=== PATIENT | female | born 1985 | race Caucasian/White ===

== ENCOUNTER 2023-11-07 21:23 | Emergency (ER) | payer OTHER, SELFPAY ==
--- NOTE | ~2023-11-07 | XR_ITS ---
XR finger 3rd LT min 2V DATE: 11/07/2023 22:43 INDICATION: Bruising at base of third digit. No injury. TECHNIQUE: AP and lateral views of the left third digit COMPARISON: None FINDINGS: No fracture or dislocation, periosteal reaction or bone destruction, radiopaque soft tissue foreign body or subcutaneous emphysema. IMPRESSION: Negative Reviewed, dictated and finalized at location A. IMPRESSION: Negative
[2023-11-07 21:36] VITALS: BP 121/68; PULSE 70; RESP 16; TEMP 36.7; O2SAT 99
--- NOTE | 2023-11-07 22:30 | ED.EXTPRO ---
HPI - Extremity Problem General Chief complaint: Extremity Problem,Nontraumatic Stated complaint: left hand swelling/bruising Time Seen by Provider: 11/07/23 22:26 History of Present Illness HPI Narrative: 38-year-old female presents to emergency department for left 3rd finger swelling and bruising she noticed today. Patient states she is cleaning her basement when she looked down and noticed swelling and bruising to the palmar aspect of her left 3rd finger. She does not recall injuring her finger. She is concerned she got bit by a brown recluse because there are known brown recluse in her basement. States she did not see the spider bite her. Tdap is up-to-date. She really states the area is somewhat tender but not significantly painful. She has full range of motion of the finger. No other injuries. Related Data Allergies Allergy/AdvReac Type Severity Reaction Status Date / Time No Known Allergies Allergy Verified 11/07/23 22:08 Review of Systems Review of Systems: CONSTITUTIONAL: Denies fever, chills, or sweats. EYES: Denies visual changes, redness, or discharge. ENT: Denies rhinorrhea, congestion, sore throat, or otalgia. CARDIOVASCULAR: Denies chest pain, palpitations, or edema. RESPIRATORY: Denies cough or dyspnea. GASTROINTESTINAL: Denies abdominal pain, nausea, vomiting, or diarrhea. GENITOURINARY: Denies dysuria or hematuria. SKIN: Denies rash or itching. MUSCULOSKELETAL: See HPI NEUROLOGIC: Denies headache, numbness, or weakness. PSYCHIATRIC: Denies anxiety or depression. Exam Narrative: GENERAL: Well-appearing, well-nourished, and in no acute distress. HEAD: Normocephalic, atraumatic. NECK: Supple. CHEST: Clear to auscultation. No respiratory distress. HEART: Regular rate and rhythm. No murmur heard. Normal peripheral pulses. EXTREMITIES: LUE: 3rd finger with focal area of ecchymosis over the D IP and middle phalanx on the palmar aspect of the finger with mild amount of edema. No areas of fluctuance or induration, no erythema or warmth. Patient has full active and passive range of motion of finger. No tenderness along the flexor tendon. Cap refill less than 2. Sensation intact. SKIN: Warm, dry, no rash. NEURO: No focal deficits. Alert and oriented x3 Course Vital Signs Vital signs: Vital Signs Temperature 98.1 F 11/07/23 21:36 Pulse Rate 70 11/07/23 21:36 Respiratory Rate 16 11/07/23 21:36 Blood Pressure 121/68 11/07/23 21:36 Pulse Oximetry 99 11/07/23 21:36 Oxygen Delivery Room Air 11/07/23 21:36 Temperature 98.1 F 11/07/23 21:36 Pulse Rate 70 11/07/23 21:36 Respiratory Rate 16 11/07/23 21:36 Blood Pressure 121/68 11/07/23 21:36 Pulse Oximetry 99 11/07/23 21:36 Oxygen Delivery Room Air 11/07/23 21:36 MDM - Extremity (Nontraumatic) MDM Narrative Medical decision making narrative: 38-year-old female presents emergency department for bruising and swelling to the palmar aspect of her left 3rd finger. She is concerned for a brown recluse bite. See HPI for further history. Triage vitals stable. Exam is significant for the above. No symptoms of flexor tenosynovitis. X-ray the finger is negative. The area does not look infected, I do not feel antibiotics are needed at this time. Encouraged Tylenol and ibuprofen and follow up with her PCP. Strict ED return precautions discussed. She is agreeable to plan verbalized understanding. Discharged stable condition brain Discharge Plan Discharge Clinical Impression: Finger pain Qualifiers: Laterality: left Qualified Code(s): M79.645 - Pain in left finger(s) Patient Disposition: Home, Self-Care Condition: Stable Instructions: Antibiotic Form Additional Instructions: You were evaluated in the emergency department for pain to her finger. Her x-rays were negative. He may have bumped or jammed her finger and not have known it, or you you may have been bitten by a spider. Please take Tyle
== END 2023-11-07 23:29 | disposition home or self-care (01) ==
PROVIDERS: Emergency Provider Physician Assistant; PCP Internal Medicine
DX: M79.645 Pain in left finger(s) (principal)
CPT/HCPCS: 73140; 99283

== ENCOUNTER 2024-11-29 05:15 | Emergency (ER) | payer BC, MEDICAID, SELFPAY ==
--- NOTE | ~2024-11-29 | XR_ITS ---
EXAMINATION: XR chest 2V DATE: 11/29/2024 06:14 INDICATION: Chest pain TECHNIQUE: PA and lateral views of the chest were obtained. COMPARISON: None FINDINGS: The lungs are clear with no focal airspace opacities, pulmonary edema, pleural effusion or pneumothor ax. The cardiomediastinal silhouette is normal. Slight thoracic dextrocurvature with mild spondylosis . Devices with appearance suggesting a port reservoir projects over the soft tissues of the anterior left upper quadrant. IMPRESSION: 1. No acute cardiopulmonary disease. Reviewed, dictated and finalized at location A.
--- NOTE | 2024-11-29 05:16 | ECG_ITS ---
Test Date: 2024-11-29 05:21:37 Measurements Intervals [place] Rate: 70 P: 7 ME: 122 QRS: 49 QRSD: 101 T: 19 QT: 386 QTc: 416 Interpretive Statements SINUS RHYTHM No previous ECG available for comparison Electronically Signed On 11-29-2024 17:13:03 CDT by Castro Chavez M.D.
[2024-11-29 05:18] VITALS: BP 124/79; PULSE 71; PULSE 82; RESP 12; TEMP 36.9; O2SAT 100
[2024-11-29 05:29] VITALS: BP 124/79; PULSE 76; RESP 12; O2SAT 99
[2024-11-29 05:30] LABS: Basophils Percent Auto 0.4 % (0.2-1.2); Eosinophils Absolute Auto 0.1 K/mm3 (0-0.3); Eosinophils Percent Auto 1.4 % (0-4.4); Hematocrit 43.9 % (37.0-47.0); Hemoglobin 14.2 g/dL (12.0-15.0); Immature Granulocyte Absolute 0.01 K/mm3 (0.00-0.031); Immature Granulocyte Percent A 0.2 % (0-0.5); Lymphocytes Absolute Auto 1.54 K/mm3 (0.9-3.2); Lymphocytes Percent Auto 31.5 % (18.3-44.2); Mean Corpuscular HGB Conc 32.3 g/dl (32-36); Mean Corpuscular Hemoglobin 29.3 pg (26-34); Mean Corpuscular Volume 90.7 fl (80-100); Mean Platelet Volume 9.4 fl (7.4-10.4); Monocytes Absolute Auto 0.5 K/mm3 (0.1-0.6); Monocytes Percent Auto 10.6 % (2.6-8.5); Neutrophils Absolute Auto 2.7 K/mm3 (1.3-6.7); Neutrophils Percent Auto 55.9 % (45.5-73.1); Platelet Count Result 232 k/mm3 (150-375); Red Blood Count 4.84 M/mm3 (4.2-5.4); Red Cell Distribution Width 13.2 % (11.5-14.5); White Blood Count 4.9 K/mm3 (4.5-10.0)
[2024-11-29 05:31] VITALS: BP 109/84; PULSE 77; RESP 11; O2SAT 98
[2024-11-29 05:41] LABS: Alanine Aminotransferase 19 U/L (6-35); Albumin Level 4.4 g/dL (3.5-5.1); Alkaline Phosphatase 57 U/L (38-126); Anion Gap 8 mmol/L (4-12); Aspartate Amino Transferase 27 U/L (14-36); Bilirubin,Total 0.6 mg/dL (0.2-1.3); Blood Urea Nitrogen 8 mg/dL (7-17); Calcium 8.9 mg/dL (8.4-10.2); Carbon Dioxide 29 mmol/L (22-30); Chloride 104 mmol/L (98-107); Estimated CRCL calculation 85 ml/min; Estimated Glomerular Filt Rate > 60; Glucose 94 mg/dL (65-110); Lipase 148 U/L (23-300); Potassium 3.6 mmol/L (3.4-5.0); Sodium 141 mmol/L (137-145)
[2024-11-29 05:43] LABS: Prothrombin Time 13.6 Seconds (11.1-14.7)
[2024-11-29 05:44] LABS: Partial Thromboplastin Time 32.4 Seconds (22.3-36.8)
[2024-11-29 05:46] VITALS: BP 109/70; PULSE 73; RESP 12; O2SAT 96
--- NOTE | 2024-11-29 05:50 | ED.CHESTPAIN ---
HPI - Chest Pain General Chief Complaint: Anxiety Stated Complaint: chest pain Time Seen by Provider: 11/29/24 05:21 Source: patient Mode of arrival: ambulatory Limitations: no limitations History of Present Illness HPI narrative: Patient presents with chest pain for approximately 30 hours. She has a history of anxiety and did try taking an old anxiolytic pill that her ObGyn Dr Mayer had once prescribed though she admits that it was more than 1 to 2 years old and might have been . Patient has had a lot of stressors recently. 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 She rule 1 of the sons about her grandfather using her ukulele and she tried to perform this some at an open [employer] earlier this evening as she is trying to perfect it so she can share with him because of his advanced age. She noticed that she got very shaky during it and had the increased chest pain afterwards. She also had a frustrating experience as although she felt like she did perform it perfectly she was offered $50 afterwards by bar waiter/waitress if she can curate 30 minutes of songs to play in the future. She was excited and carotid vessels offer but she states that her boyfriend seem to make derogatory comments that she was only offered this money because she has tits. He is a musician and she thought perhaps he was jealous. She also notes the stressors of having an ex- in her life and there being financial issues related to property they own together. She has a history of anxiety. Her chest pain is located below her left shoulder blade she notes that taking a deep breath worsens this pain. She describes the pain as a pressure but the with a piercing quality with breaths. This occurs intermittently. She denies any shortness of breath at rest. No nausea, vomiting, diaphoresis, fevers, or chills. She has not been coughing denies any hemoptysis. No edema. This has never happened before and she has never seen a geographic analyst or had a cardiac workup. She has a PCP. No underlying respiratory issues. Cardiac risk factors HTN:0 (in fact, history of low BP) HLD:0 DM:0 Obese: technically per measurements in EMR today Smoker: Yes - vapes nicotine/tobacco Personal history AZ/TIA/CVA: 0 Fam Hx AZ in first degree relative <65yo:0 (mother had cardiac surgery as a baby, suspect congenital issue) Related Data Allergies Allergy/AdvReac Type Severity Reaction Status Date / Time No Known Allergies Allergy Verified 11/29/24 05:15 [facility] Past Medical History Medical History (Updated 11/29/24 @ 17:50 by Minerva Ramirez MD) Anxiety Family History Family History Mother Congenital heart defect pediatric Status post cardiac surgery pediatric Social History Social History (Updated 11/29/24 @ 17:55 by Minerva Ramirez MD) Tobacco type: e-cigarettes/vaping Additional smoking assessment comments: tobacco/nicotine Substance use type: unknown Additional occupation/education comments: Quit finance job; multiple other pursuits (songwriting, writing books, developing judith) Exam Narrative: GENERAL: Well-appearing, well-nourished, and in no acute distress. HEAD: Normocephalic, atraumatic. EYES: Non injected, non icteric ENT: Nares clear, no rhinorrhea or epistaxis. Gross auditory acuity intact. NECK: Supple. No meningismus. CHEST: Speaking in full sentences. No respiratory distress. Lungs clear to auscultation bilaterally without appreciable wheezes or crackles or focal consolidation HEART: Regular rate and rhythm. . ABDOMEN: Soft, nondistended. No rigidity or guarding. Not peritoneal EXTREMITIES: Normal range of motion. No bilateral lower extremity edema. SKIN: Warm, dry, no rash. NEURO: No focal deficits. Alert and oriented. Answering questions. Following commands. Normal speech without aphasia or dysarthria. PSYCH: Appearance: Well kempt. Mood is (congruent with affect. Speech: Appropriate rate, quantity and volume. Patient frequently turning conversation to variety of life stressors when asked about cardiac /respiratory symptoms and obtaining PMH. Course Vital Signs Vital signs: Vital Signs Temperature 98.5 F 11/29/24 05:18 Pulse Rate 71 11/29/24 05:18 Respiratory Rate 12 11/29/24 05:18 Blood Pressure 124/79 11/29/24 05:18 Pulse Oximetry 100 11/29/24 05:18 Oxygen Delivery Room Air 11/29/24 05:18 Temperature 98.5 F 11/29/24 05:18 Pulse Rate 73 05/24/25 05:46 Respiratory Rate 12 11/29/24 05:46 Blood Pressure 109/70 11/29/24 05:46 Pulse Oximetry 96 11/29/24 05:46 Oxygen Delivery Room Air 11/29/24 05:18 MDM - Chest Pain MDM Narrative Medical decision making narrative: Patient presents with chest pain of more than 1 days' duration. History of anxiety and symptoms got worse after performing at an open [employer] where she debuted a song she wrote and performed on the [employer] about her grandpa . History of anxiety and tried taking an old anxiolytic drug she had been prescribed but she thinks it might have been . In the emergency department they are afebrile with vital signs within normal limits. HEART SCORE History 2 highly suspicious 1 moderately suspicious 0 slightly suspicious History score [address] depression/elevation not due to LBBB, LVH, or digoxin [address] depression but LBBB, LVH, nonspecific repolarization changes 0 normal ECG score 0 Age 2 >/= 65 1 45-64 0 <45 Age score 0 Risk factors (HTN, hypercholesterolemia, DM, obesity with BMI >30, current smoker or cessation </=3mo), positive fam hx with parent or sibling with CVD before age 65, atherosclerotic disease (prior AZ, PCI/CABG, CVA/TIA, or peripheral arterial disease) 2 >/= 3 risk factors or history of atherosclerotic dz 1 - 1-2 risk factors 0 no known risk factors Risk factor score : 1 (obese, smoker) Initial Troponin 2 >3 times normal limit 1 1-3 times normal limit 0 less than or equal to normal limit Troponin score 0 Total HEART Score 1. PERC Rule Age greater than or equal to 50: 0 HR greater than or equal to 100:0 O2 sat room air <95%:0 Unilateral leg swellin Hemoptysis:0 Recent surgery or trauma less than 4 wks ago requiring tx with general anesthesia:0 Prior PE or DVT:0 Hormone use (OCP, HRT or estrogenic hormone use in M/F patients): 0 Will defer further PE work up. Repeat troponin also deferred given patient's symptoms have been going on for >24 hours. Her symptoms sound very much related to anxiety and life stressors, as she herself endorses. Patient given a dose of an anxiolytic. Advised follow-up with PCP but also given referral contact information for geographic analyst given her low but not negligible risk. Stable for discharge. Differential Diagnosis Differential diagnosis: Likely pneumothorax, stable angina, unstable angina pectoris, atypical chest pain, st elevation myocardial infarction, costochondritis, chest pain, biliary colic and other (anxiety/panic attack) Lab Data Attestation: I reviewed the patient's lab results. 11/29/24 05:23 11/29/24 05:23 Labs: Lab Results 11/29/24 Range/Units 05:23 WBC 4.9 (4.5-10.0) K/mm3 RBC 4.84 (4.2-5.4) M/mm3 Hgb 14.2 (12.0-15.0) g/dL Hct 43.9 (37.0-47.0) % MCV 90.7 (80-100) fl MCH 29.3 (26-34) pg MCHC 32.3 (32-36) g/dl RDW 13.2 (11.5-14.5) % Plt Count 232 (150-375) k/mm3 MPV 9.4 (7.4-10.4) fl Immature Gran % (Auto) 0.2 (0-0.5) % Neut % (Auto) 55.9 (45.5-73.1) % Lymph % (Auto) 31.5 (18.3-44.2) % Williams % (Auto) 10.6 H (2.6-8.5) % Eos % (Auto) 1.4 (0-4.4) % Baso % (Auto) 0.4 (0.2-1.2) % Lymph # (Auto) 1.54 (0.9-3.2) K/mm3 Williams # (Auto) 0.5 (0.1-0.6) K/mm3 Eos # (Auto) 0.1 (0-0.3) K/mm3 Baso # (Auto) 0.0 (0.0-0.1) K/mm3 Abs Immat Gran (auto) 0.01 (0.00-0.031) K/mm3 Absolute Neuts (auto) 2.7 (1.3-6.7) K/mm3 Absolute Nucleated RBC 0.000 (0.0-0.012) K/mm3 Nucleated RBC % 0.0 (0.0-0.2) % PT 13.6 (11.1-14.7) Seconds INR 1.0 APTT 32.4 (22.3-36.8) Seconds Sodium 141 (137-145) mmol/L Potassium 3.6 (3.4-5.0) mmol/L Chloride 104 (98-107) mmol/L Carbon Dioxide 29 (22-30) mmol/L Anion Gap 8 (4-12) mmol/L BUN 8 (7-17) mg/dL Creatinine 0.81 (0.7-1.0) mg/dL Estim Creat Clear Calc 85 ml/min Estimated GFR > 60 (59 - ) Glucose 94 (65-110) mg/dL Calcium 8.9 (8.4-10.2) mg/dL Total Bilirubin 0.6 (0.2-1.3) mg/dL AST 27 (14-36) U/L ALT 19 (6-35) U/L Alkaline Phosphatase 57 (38-126) U/L Troponin I < 0.012 (0.000-0.034) ng/mL Total Protein 8.0 (6.3-8.2) g/dL Albumin 4.4 (3.5-5.1) g/dL Lipase 148 (23-300) U/L Imaging Data Attestation: I personally reviewed and interpreted this imaging study as follows: My impression: Normal chest x-ray on my independent interpretation. Radiologist's impression: Impressions Chest X-Ray 11/29/24 08:02 IMPRESSION: 1. No acute cardiopulmonary disease. ECG Data EKG #1: Attestation: I personally reviewed and interpreted this ECG as follows: ECG completion date: 11/29/24 ECG completion time: 05:21 Interpretation: Normal sinus rhythm at a rate of 70 beats per minute. NH interval 122. QRS 101. QT/QTC 386/406. Good R-wave progression across the precordial leads. T-wave flattening in 3 but otherwise upright in normal in contiguous inferior leads 2 and AVF. Mildly Biphasic T-wave in V3 though appears upright and not as distinct/sharp as [place]. No other T-wave inversions. Normal axis. Discharge Plan Discharge Clinical Impression: Chest pain, Anxiety as acute reaction to exceptional stress Patient Disposition: Home Condition: Stable Instructions: Antibiotic Form, Chest Pain (DC), Anxiety (ED) Additional Instructions: Your workup (chest x-ray EKG, and cardiac enzyme) was normal and your symptoms due sound more related to life stressors and understandable anxiety from this. You are an impressive woman and have reason to be proud of your accomplishments and pursuing your goals/dreams. Follow up with your primary care physician. Return to the ED if any new/worsening/unmanaged symptoms. Although your cardiac risk is low, it is not negligible. Your primary care physician can help you arrange a cardiac work up in the outpatient setting, or, if needed, the name of a geographic analyst is listed below. Patient Language: British Follow-up/Referrals: Castro Chavez MD [Physician] - [facility],Baldemar Ramos MD [Primary Care Provider] - Stand Alone Forms: Work/School Release IP Time of Disposition: 06:27
[2024-11-29 05:53] LABS: Troponin I < 0.012 ng/mL (0.000-0.034)
[2024-11-29] MEDS: ASPIRIN 81 MG CHEWABLE TABLET 324 MG PO (06:15)
[2024-11-29] MEDS: LORazepam (*CRX) 0.5 MG TABLET PO (06:16)
== END 2024-11-29 06:54 | disposition home or self-care (01) ==
PROVIDERS: Emergency Provider Student in an Organized Health Care Education/Training Program; PCP Internal Medicine
DX: F41.1 Generalized anxiety disorder (principal); F43.0 Acute stress reaction; R07.9 Chest pain, unspecified
CPT/HCPCS: 36415; 71046; 80053; 83690; 84484; 85025; 85610; 85730; 93005; 99284; A9270